=== PATIENT | female | born 2000 | race Caucasian/White ===

== ENCOUNTER 2022-02-09 01:54 | Inpatient (IN) | payer OTHER ==
[2022-02-09] VITALS (26 sets, daily range): BP systolic 95–146; BP diastolic 60–96; PULSE 69–103; TEMP 97.8–98.8
[~2022-02-09] VITALS: Ht 167.6 cm; Wt 80.5 kg
--- NOTE | 2022-02-09 02:00 | NUR ---
G1 at 39 weeks and 2 days arrives to unit with complaint of contractions every 5 minutes since around 2200. Pt reports good movement, denies LOF, or vaginal bleeding. Pt denies headaches, blurry vision, or RUQ pain. Clean gown on. Pt oriented to room, bed in low and locked position, call light within reach. US and toco explained and applied. Admission assessment started. Vital signs obtained. SVE 4/80/-3, membranes intact.
[2022-02-09] MEDS ORDERED: PRENATAL TABLET PO (02:27)
--- NOTE | 2022-02-09 03:45 | NUR ---
Report received from [facility]. Pt resting between contractions. Plan of care and admit process explained. Pt off monitors to use restroom. 0357: IV started and labs obtained via IV site. LR bolus infusing without difficulty. Consents completed. 0412: FHR reactive. Pt off monitors to ambulate in hallway and use birthing ball. Denies needing anything else at this time
[2022-02-09 04:39] LABS: BASO # 0.1 K/mm3 (0.0-0.2); BASO % 0.4 % (0.0-2.0); EOS # 0.1 K/mm3 (0.0-0.7); EOS % 0.6 % (0.0-4.0); GRAN # 9.9 K/mm3 (1.4-6.5); HEMATOCRIT 38.6 % (37.0-47.0); LYMPH # 2.2 K/mm3 (1.2-3.4); LYMPH % 16.5 % (20.0-51.0); MEAN CELL VOLUME 91 fl (80.0-100.0); MEAN CORPUSCULAR HEMOGLOBIN 31 pg (27-31); MEAN CORPUSCULAR HGB CONC 34 g/dl (33.0-37.0); MEAN PLATELET VOLUME 10.9 fl (7.4-10.4); MONO # 0.8 K/mm3 (0.1-0.6); MONO % 6.4 % (1.7-9.3); PLATELET COUNT 258 K/mm3 (130-400); RED BLOOD COUNT 4.23 M/mm3 (4.10-5.30); REDCELL DISTRIBUTION WIDTH-CV 12.9 % (11.5-14.5)
--- NOTE | 2022-02-09 05:10 | NUR ---
Pt called out requesting epidural. FHR monitor placed. LR bolus started infusing. SVE /-1. Judy RIP SAW OPERATOR notified.
--- NOTE | 2022-02-09 05:18 | NUR ---
Judy BENEFITS REPRESENTATIVE at bedside for epidural. Procedure explained. Pt assisted to edge of bed. Pulse ox applied. Difficulty tracing FHR due to maternal position. 0523: Single shot administered by Judy CHICAS. See anesthesia records. 0527: Pt assisted to simifowlers. Plan of care and safety precautions explained. Call button within reach.
--- NOTE | 2022-02-09 08:00 | NUR ---
0740- Pt and room prepped for pushing. 0754- Dr Maharaj at bedside. Pt begins pushing with UCs. FHR late decel noted after pushing, down to the 60's, lasting approx 2 mins. MD remains at bedside.
--- NOTE | 2022-02-09 08:15 | NUR ---
0805- gowns, bed broken down. Pt continues pushing with [facility].
--- NOTE | 2022-02-09 08:30 | NUR ---
0820- FHR late decel noted after pushing with UC, down to 75bpm, appears to last approx 2 mins. FHR not tracing well while pushing. MD remains at bedside with Pt.
--- NOTE | 2022-02-09 08:56 | NUR ---
0853- FHR noted to be in the 60's. MD encourages Pt to push. 0856- of viable female . Spontaneous crying noted. Infant to mother's abd, tended to by Pranav, nursery RN. Delayed cord clamping. 0900- Spontaneous delivery of placenta, Pitocin started at 333ml/hr, fundus massaged to firm by . 2nd degree laceration repaired by . 0910- Pericare completed. Chux changed, ice pack to perineum. Pt in stable condition with infant [id number].
--- NOTE | 2022-02-09 11:50 | NUR ---
1150- Pt ambulates to bathroom independently, with RN standby assit. Unable to void at this time. Vaginal bleeding WNL, uterus midline. Pericare explained and completed. Peripad and underwear on. Clean gown on. Pt ambulates to PP room independently with RN. Orineted to room, call light within reach.
[2022-02-09] MEDS ORDERED: MOTRIN 800800 MG/TAB PO (20:19)
[2022-02-10 05:00] VITALS: BP 108/61; PULSE 59; TEMP 97.7
[2022-02-10 06:12] LABS: HEMATOCRIT 32.4 % (37.0-47.0); HEMOGLOBIN 10.5 g/dl (12.5-16.0)
[2022-02-10 08:45] VITALS: BP 109/79; PULSE 78; TEMP 98
--- NOTE | 2022-02-10 09:09 | NUR ---
Initial visit; Parents thanked Stonework Supervisor for offering congratulations and God's blessings for the of their daughter. Stonework Supervisor thanked family for choosing [facility].
[2022-02-10 17:04] VITALS: BP 130/74; PULSE 76; TEMP 98.7
[2022-02-10 19:37] VITALS: BP 133/79; PULSE 84; TEMP 98.8
--- NOTE | 2022-02-11 00:20 | NUR ---
PT STATES SHE HAS RECIEVED EDUCATION PACKET PRIOR TO MOVING TO POST , THIS NURSE VERIFIED DOCUMENTS ARE IN POSESSION OF PT. NURSE VERIFIED PT IS AWARE OF CONTENTS OF EDUCATION PACKET.
--- NOTE | 2022-02-11 01:15 | NUR ---
No current IV site found upon assessment, pt stated iv was removed during day time.
[2022-02-11 09:16] VITALS: BP 12/80; BP 128/80; PULSE 88; TEMP 98.1
== END 2022-02-11 11:51 | disposition home or self-care (01) | DRG 806 ==
LOC: LDRO 01:54 → LDR 03:27 → OB 03:27
PROVIDERS: Obstetrics & Gynecology; ADMIT Student in an Organized Health Care Education/Training Program
PROC: 10E0XZZ Delivery of Products of Conception, External Approach (ICD-10-PCS; principal; 2022-02-09)
PROC: 0KQM0ZZ Repair Perineum Muscle, Open Approach (ICD-10-PCS; 2022-02-09)
PROC: 3E0334Z Introduction of Serum, Toxoid and Vaccine into Peripheral Vein, Percutaneous Approach (ICD-10-PCS; 2022-02-10)
DX: O99.344 Other mental disorders complicating childbirth (principal); B01.89 Other varicella complications; Z37.0 Single live birth; O98.52 Other viral diseases complicating childbirth; F43.10 Post-traumatic stress disorder, unspecified; O70.1 Second degree perineal laceration during delivery; O26.893 Other specified pregnancy related conditions, third trimester; Z3A.39 39 weeks gestation of pregnancy
CPT/HCPCS: J2590; J2791; J2795; J7120